=== PATIENT | female | born 1945 | race Caucasian/White ===

== ENCOUNTER 2022-11-25 10:53 | Outpatient (RCR) | payer MEDICARE | END 2022-12-03 | disposition home or self-care (01) | LOC: CR 10:53 | PROVIDERS: ATTEND Internal Medicine Interventional Cardiology | DX: Z29.8 Encounter for other specified prophylactic measures (principal); Z98.61 Coronary angioplasty status | CPT/HCPCS: 93798 ==

== ENCOUNTER 2022-12-30 11:13 | Outpatient (RCR) | payer MEDICARE | END 2022-12-31 | disposition home or self-care (01) | LOC: CR 11:13 | PROVIDERS: ATTEND Internal Medicine Interventional Cardiology | DX: Z29.8 Encounter for other specified prophylactic measures (principal); Z98.61 Coronary angioplasty status | CPT/HCPCS: 93798 ==

== ENCOUNTER 2023-01-27 10:47 | Outpatient (RCR) | payer MEDICARE | END 2023-01-31 | disposition home or self-care (01) | LOC: CR 10:47 | PROVIDERS: ATTEND Internal Medicine Interventional Cardiology | DX: Z29.8 Encounter for other specified prophylactic measures (principal); Z98.61 Coronary angioplasty status | CPT/HCPCS: 93798 ==